=== PATIENT | female | born 1960 | race Hispanic/Latino ===

== ENCOUNTER 2021-03-22 13:58 | Outpatient (CLI) | payer MEDICARE, MEDICAID | END 2021-03-22 13:59 | disposition home or self-care (01) | LOC: CSHMRI 13:58 | PROVIDERS: ATTEND Family Medicine | DX: M79.89 Other specified soft tissue disorders (principal); M23.301 Other meniscus derangements, unspecified lateral meniscus, left knee; S83.242A Other tear of medial meniscus, current injury, left knee, initial encounter ==

== ENCOUNTER 2021-04-20 00:37 | Emergency (ER) | payer MEDICARE, MEDICAID | END 2021-04-20 02:22 | disposition home or self-care (01) | LOC: CSHERS 00:37 | DX: M25.562 Pain in left knee (principal); M23.201 Derangement of unspecified lateral meniscus due to old tear or injury, left knee; M23.204 Derangement of unspecified medial meniscus due to old tear or injury, left knee; I10 Essential (primary) hypertension; E78.5 Hyperlipidemia, unspecified; E11.9 Type 2 diabetes mellitus without complications; Z87.891 Personal history of nicotine dependence ==

== ENCOUNTER 2021-09-30 05:47 | Emergency (ER) | payer MEDICARE, MEDICAID | END 2021-09-30 06:28 | disposition home or self-care (01) | LOC: CSHERS 05:47 | DX: H66.91 Otitis media, unspecified, right ear (principal); E11.9 Type 2 diabetes mellitus without complications; I10 Essential (primary) hypertension; E78.5 Hyperlipidemia, unspecified; Z87.891 Personal history of nicotine dependence | CPT/HCPCS: 99282 ==

== ENCOUNTER 2021-12-19 05:38 | Emergency (ER) | payer MEDICARE, MEDICAID | END 2021-12-19 06:56 | disposition home or self-care (01) | LOC: CSHERS 05:38 | DX: M54.2 Cervicalgia (principal); M79.671 Pain in right foot; I10 Essential (primary) hypertension; E78.5 Hyperlipidemia, unspecified; E11.9 Type 2 diabetes mellitus without complications; Z87.891 Personal history of nicotine dependence | CPT/HCPCS: 96372; 99282 ==

== ENCOUNTER 2022-05-06 18:50 | Emergency (ER) | payer MEDICARE, MEDICAID | END 2022-05-06 19:43 | disposition home or self-care (01) | LOC: CSHERS 18:50 | DX: H92.01 Otalgia, right ear (principal); E11.9 Type 2 diabetes mellitus without complications; E78.5 Hyperlipidemia, unspecified; I10 Essential (primary) hypertension; Z87.891 Personal history of nicotine dependence | CPT/HCPCS: 99282 ==

== ENCOUNTER 2022-07-01 16:00 | Emergency (ER) | payer OTHER, MEDICARE, MEDICAID ==
[2022-07-01] MEDS ORDERED: Acetaminophen 500 MG TAB ONE (16:49)
== END 2022-07-01 16:58 | disposition home or self-care (01) ==
LOC: CSHERS 16:00
DX: M79.604 Pain in right leg (principal); E78.5 Hyperlipidemia, unspecified; E11.9 Type 2 diabetes mellitus without complications; I10 Essential (primary) hypertension; V89.2XXA Person injured in unspecified motor-vehicle accident, traffic, initial encounter; Z87.891 Personal history of nicotine dependence
CPT/HCPCS: 99283

== ENCOUNTER 2023-01-09 11:48 | Emergency (ER) | payer MEDICARE, MEDICAID | END 2023-01-09 15:30 | disposition home or self-care (01) | LOC: CSHERS 11:48 | DX: B37.2 Candidiasis of skin and nail (principal); R21 Rash and other nonspecific skin eruption; I10 Essential (primary) hypertension; E78.5 Hyperlipidemia, unspecified; E11.9 Type 2 diabetes mellitus without complications; Z87.891 Personal history of nicotine dependence | CPT/HCPCS: 99282 ==

== ENCOUNTER 2023-02-13 23:07 | Emergency (ER) | payer MEDICARE, MEDICAID | END 2023-02-13 23:54 | disposition left against medical advice (07) | LOC: CSHERS 23:07 | DX: Z53.21 Procedure and treatment not carried out due to patient leaving prior to being seen by health care provider (principal) ==

== ENCOUNTER 2023-06-04 | Outpatient (CLI) | payer MEDICARE, MEDICAID | END 2023-06-04 11:17 | disposition home or self-care (01) | DX: R51.9 Headache, unspecified (principal) ==

== ENCOUNTER 2023-07-27 12:25 | Emergency (ER) | payer MEDICARE, MEDICAID, OTHER ==
[2023-07-27] MEDS ORDERED: Ketorolac Tromethamine 30 MG (1 mL) VIAL ONE (13:30)
== END 2023-07-27 14:07 | disposition home or self-care (01) ==
LOC: CSHERS 12:25
DX: M79.601 Pain in right arm (principal); M54.9 Dorsalgia, unspecified; E11.9 Type 2 diabetes mellitus without complications; E78.5 Hyperlipidemia, unspecified; I10 Essential (primary) hypertension
CPT/HCPCS: 70450; 72125; 96372; J1885

== ENCOUNTER 2024-08-08 16:20 | Emergency (ER) | payer OTHER, MEDICAID ==
[2024-08-08] MEDS ORDERED: Ketorolac Tromethamine 30 MG (1 mL) VIAL ONE (16:48)
== END 2024-08-08 17:33 | disposition home or self-care (01) ==
LOC: CSHERS 16:20
DX: S43.401A Unspecified sprain of right shoulder joint, initial encounter (principal); E11.9 Type 2 diabetes mellitus without complications; I10 Essential (primary) hypertension; X50.0XXA Overexertion from strenuous movement or load, initial encounter
CPT/HCPCS: 73030; 96372; 99283; J1885